=== PATIENT | female | born 1975 | race Caucasian/White ===

== ENCOUNTER 2025-06-16 18:27 | Emergency (ER) | payer MEDICAID ==
[~2025-06-16] VITALS: Ht 170.2 cm; Wt 79.0 kg
[2025-06-16 18:37] VITALS: BP 117/90; PULSE 95; RESP 18; TEMP 37.1; O2SAT 98
== END 2025-06-16 23:32 | disposition left against medical advice (07) ==
LOC: ER 18:27
DX: F10.129 Alcohol abuse with intoxication, unspecified (principal); Z53.21 Procedure and treatment not carried out due to patient leaving prior to being seen by health care provider; Y90.9 Presence of alcohol in blood, level not specified

== ENCOUNTER 2025-06-25 18:12 | Emergency (ER) | payer MEDICAID ==
[~2025-06-25] VITALS: Ht 167.6 cm; Wt 82.0 kg
[2025-06-25 18:16] VITALS: O2SAT 100
[2025-06-25] MEDS ORDERED: KETOROLAC 15MG/ML VIAL IM ONE (19:00)
[2025-06-25] MEDS: KETOROLAC 15MG/ML VIAL IM NR (21:08)
[2025-06-25 22:49] VITALS: BP 149/82; PULSE 70; RESP 16; TEMP 36.9; O2SAT 100
== END 2025-06-25 22:59 | disposition home or self-care (01) ==
LOC: ER 18:12
DX: M79.605 Pain in left leg (principal); M79.604 Pain in right leg; M79.89 Other specified soft tissue disorders
CPT/HCPCS: 99285; 93970; 96372; J1885